=== PATIENT | female | born 1955 | race Caucasian/White ===

== ENCOUNTER 2017-01-18 23:26 | Emergency (ER) | payer OTHER ==
[~2017-01-18] VITALS: Ht 162.6 cm; Wt 113.6 kg
[~2017-01-18 23:26] MED LIST: ATOR80TA PO; CA C1TAB83 PO; DULO60CA61 PO; LISI1TAB9 PO; MULT-1065 PO; OMEP20CA11 PO; OXYB10TA PO
[2017-01-18 23:38] VITALS: BP 121/83; PULSE 115; RESP 20; O2SAT 97
--- NOTE | 2017-01-18 23:52 | ED.REPORT ---
HPI-Bite: Human/Animal Date of Service Jan 18, 2017 ED Provider: Alonso Blue MD Pt is an otherwise healthy 61 year old female who presents to the ED complaining of a cat bite to her left forearm onset 2100 today. She c/o associated left arm pain. She denies any other symptoms. Pt reports that the cat was a feral cat that "snuck into the house". The pt has the cat in her possession. Nursing Notes Stated Complaint: CAT BITE ON LEFT FOREARM Chief Complaint: Laceration Nursing Notes Reviewed: Yes Allergies: Coded Allergies: lithium (Verified Allergy, Severe, Nausea,Vomiting, 11/19/15) Scheduled Atorvastatin (Lipitor) 80 Mg Tablet 80 MG PO DAILY Duloxetine (Duloxetine) 60 Mg Capsule.dr 60 MG PO DAILY Lisinopril / HCTZ 20-12.5 mg (Lisinopril / HCTZ 20-12.5 mg) 1 Each Tablet 1 EACH PO DAILY Omeprazole (Omeprazole) 20 Mg Capsule.dr 20 MG PO DAILY Oxybutynin Chloride ER (Oxybutynin Chloride ER) 10 Mg Tab.er.24 10 MG PO DAILY Miscellaneous Medications Ca Carbonate/Vitamin D3/Vit K (Calcium + D Soft Chewable Tab) 1 Each Tab.chew 1 EACH PO Multivits-Min/Iron/FA/Lutein (Centrum Silver Women Tablet) 8 Mg Iron-400 Mcg- 300 Mcg Tablet 1 EACH PO General Time Seen by MD: 23:49 Chief Complaint Cat bite Hx Obtained From: Patient Arrived By: Walk-in Onset Occurred: Just prior to arrival Symptom Duration: Since onset Location: : Forearm left Quality: Painful Severity: Current: Moderate Severity: Maximum: Moderate Recent Healthcare: No recent doctor visit, No recent hospitalization Similar Sx Previous: No Past Medical History Past Medical History Anxiety Reports: GERD, Denies: Diabetes mellitus Reports: Depression Past Surgical History Reports: Hysterectomy Smoking History Never Smoker Social History Alcohol Use: "Social" Drug Use: Denies drug use Ambulatory Status Independent Review of Systems Constitutional: Denies: Fever Complete sys rev & neg: except as marked. Respiratory: Denies: Non-productive cough, Shortness of breath Musculoskeletal: Reports: Extremity pain Physical Exam Vital Signs Vital Signs (First) Date Time Temp Pulse Resp B/P Pulse Ox O2 Delivery O2 Flow Rate FiO2 01/18/17 23:38 36.9 115 20 121/83 97 Room Air Initial VS: Reviewed, Vital signs abnormal Head / Eyes: Atraumatic, Normocephalic Neck: Supple, Full range of motion Respiratory: Breath sounds normal, Clear to auscultation, No respiratory distress Cardiovascular: Regular rate & rhythm, Intact distal pulses Abdomen / GI: Soft, Non-tender Extremities: Vascular intact, Neuro intact Neurologic: Alert, Oriented, Nonfocal Psychiatric: Mood/affect normal, Behavior normal General/Constitutional: Awake, Alert Skin: Warm, Dry 3 small punctures on the mid left forearm extensive surface. Re-Eval/Medical Decision Med Decision/Clinical Course 61-year-old female with a cat bite from a feral cat. The cat is in her custody and will be turned over to the [employer] tomorrow. The [facility] will assist in arranging 10 day observation of this animal. Amoxicillin clavulanate (Augmentin) 875 mg, one pill twice daily for 10 days, # 20 dispensed. Antibiotic ointment and Band-Aid daily. Old records Re-Evaluation/Progress : Time of Eval: 00:03 Re-Evaluation/Progress Note: Informed pt of plan for discharge. Pt understands and agrees with plan for discharge. F/U instructions and RTER warnings given. All questions addressed. Counseled Regarding: Diagnosis, Need for follow-up, When/why to return to ED Discharge & Departure Impression: Primary Impression: Cat bite of left forearm Encounter type: initial encounter Qualified Code: S51.852A - Open bite of left forearm, initial encounter Disposition: Home Discharge Condition All VS Reviewed: Yes Condition: Stable Patient Instructions: Animal Bite (ED) Additional Instructions: Amoxicillin clavulanate (Augmentin) 875 mg, one pill twice daily for 10 days, # 20 dispensed. Antibiotic ointment and Band-Aid daily. Contact the [facility] to turn the care over to them. The health department will call you to discuss the observation protocol. Referrals: Melva Herzog DO (PCP) Mary Aliceibbarron Attestation Portions of this note were transcribed by Andie Lopez. I, Dr. Blue personally performed the history, physical exam and medical decision-making; I reviewed and confirmed the accuracy of the information in the transcribed note. Signed by: Rosalee Lomas, 01/18/17. copies to: Melva Herzog Howard L MD Jan 18, 2017 23:52 Andie Tay Jan 18, 2017 23:57
[2017-01-19 00:34] VITALS: BP 121/83; PULSE 115; RESP 20; O2SAT 97
[2017-01-19] MEDS ORDERED: _Amoxicillin-Clavulanate 875-125 mg Tablet PO SCH (08:30)
== END 2017-01-19 00:25 | disposition home or self-care (01) ==
LOC: SED 23:26
DX: S51.852A Open bite of left forearm, initial encounter (principal); W55.01XA Bitten by cat, initial encounter; Y93.89 Activity, other specified; Y99.8 Other external cause status; Y92.018 Other place in single-family (private) house as the place of occurrence of the external cause; K21.9 Gastro-esophageal reflux disease without esophagitis; F41.9 Anxiety disorder, unspecified; Z90.710 Acquired absence of both cervix and uterus